=== PATIENT | female | born 1970 | race Caucasian/White ===

== ENCOUNTER 2018-06-08 12:24 | Observation (INO) | payer OTHER ==
[2018-06-08 13:13] LABS: Basophils % (A) 0 %; Eosinophils # (A) 0.1 k/uL (0-0.7); Eosinophils % (A) 1 %; HCT 39.2 % (34.0-46.0); HGB 12.9 gm/dL (11.4-16.0); Lymphocytes # (A) 2.9 k/uL (1.0-4.8); Lymphocytes % (A) 33 %; MCHC 32.9 g/dL (31.0-37.0); MCV 94.2 fL (80.0-100.0); Mean Platelet Volume 6.4; Monocytes # (A) 0.3 k/uL (0-1.0); Monocytes % (A) 3 %; Neutrophils # (A) 5.3 k/uL (1.3-7.7); Neutrophils % (A) 61 %; Platelet Count 313 k/uL (150-450); RBC 4.16 m/uL (3.80-5.40); RDW 12.8 % (11.5-15.5); WBC 8.8 k/uL (3.8-10.6)
[2018-06-08 13:19] LABS: Partial Thromboplastin Time 23.6 sec (22.0-30.0); Prothrombin Time 9.5 sec (9.0-12.0)
[2018-06-08 13:21] LABS: ALT 17 U/L (9-52); AST 16 U/L (14-36); Albumin 3.7 g/dL (3.5-5.0); Alkaline Phosphatase 93 U/L (38-126); Anion Gap 7 mmol/L; Blood Urea Nitrogen 7 mg/dL (7-17); Calcium 9.2 mg/dL (8.4-10.2); Carbon Dioxide 26 mmol/L (22-30); Chloride 106 mmol/L (98-107); Glucose 79 mg/dL (74-99); Lipase 46 U/L (23-300); Magnesium 2.1 mg/dL (1.6-2.3); Potassium 4.4 mmol/L (3.5-5.1); Sodium 139 mmol/L (137-145); Total Bilirubin 0.2 mg/dL (0.2-1.3); Total Protein 7.1 g/dL (6.3-8.2)
--- NOTE | 2018-06-08 13:25 | ED ---
General Adult HPI - General Chief complaint: Chest Pain Stated complaint: chest pain Time Seen by Provider: 06/08/18 12:43 Source: patient, RN notes reviewed, old records reviewed Mode of arrival: wheelchair Limitations: no limitations - History of Present Illness Initial comments: 47-year-old female presents for evaluation of chest pain. Pain is been present over the past one week. Intermittent in nature, substernal pain. She is a current smoker. She has a strong family history of CAD including both parents and her sister who had open-heart surgery in her 30s. Patient denies nausea or vomiting. Denies diaphoresis. Denies any radiating pain. She was previously evaluated for chest pain several years ago, she was instructed to receive heart catheterization but she did not receive this testing. - Related Data Home Medications Medication Instructions Recorded Confirmed ARIPiprazole [Abilify] 2 mg PO HS 06/08/18 06/08/18 Amitriptyline HCl [Elavil] 50 mg PO HS 06/08/18 06/08/18 Mirtazapine 30 mg PO HS 06/08/18 06/08/18 Allergies Allergy/AdvReac Type Severity Reaction Status Date / Time No Known Allergies Allergy Verified 06/08/18 13:55 Review of Systems ROS Statement: Those systems with pertinent positive or pertinent negative responses have been documented in the HPI. ROS Other: All systems not noted in ROS Statement are negative. Past Medical History Past Medical History: No Reported History History of Any Multi-Drug Resistant Organisms: None Reported Past Surgical History: Tubal Ligation Additional Past Surgical History / Comment(s): eye surgery Past Psychological History: Depression Smoking Status: Current every day smoker Past Alcohol Use History: None Reported Past Drug Use History: None Reported General Exam Limitations: no limitations General appearance: alert, in no apparent distress Head exam: Present: atraumatic, normocephalic Eye exam: Present: normal appearance, PERRL ENT exam: Present: normal exam Neck exam: Present: normal inspection. Absent: tenderness, meningismus Respiratory exam: Present: normal lung sounds bilaterally. Absent: respiratory distress, wheezes Cardiovascular Exam: Present: regular rate, normal rhythm GI/Abdominal exam: Present: soft. Absent: distended, tenderness, guarding Extremities exam: Present: normal inspection, normal capillary refill. Absent: pedal edema Back exam: Present: normal inspection, full ROM Neurological exam: Present: alert, oriented X3, CN II-XII intact. Absent: motor sensory deficit Psychiatric exam: Present: normal affect, normal mood Skin exam: Present: warm, dry, intact. Absent: cyanosis, diaphoretic Course Vital Signs 06/08/18 06/08/18 06/08/18 12:28 13:28 14:36 Temperature 97.8 F Pulse Rate 94 84 85 Respiratory 20 18 16 Rate Blood Pressure 133/85 148/84 125/74 O2 Sat by Pulse 99 98 97 Oximetry - Reevaluation(s) Reevaluation #1: 06/08/18 15:09 Patient remains chest pain-free while in the emergency department. EKG Findings - EKG Comments: EKG Findings:: EKG: Normal sinus rhythm, rightward axis, rate of 78, KS interval 158, QRS duration 94, QTC 426, no ST segment elevation or depression, Q waves in lead 3 with T-wave inversion Medical Decision Making - Medical Decision Making 47-year-old female presenting with 1 week history of intermittent chest pain. Patient has no known history of CAD, however she has significant risk factors including strong family history, and current tobacco use. Patient's workup in the emergency Department is negative, troponin negative, normal CBC, normal CMP. Patient will be placed in observation for serial cardiac enzymes, telemetry, and cardiology consultation. Case is discussed with admitting physician Dr. Michaels. - Lab Data Result diagrams: 06/08/18 12:53 06/08/18 12:53 Lab Results 06/08/18 06/08/18 06/08/18 Range/Units 12:53 12:53 12:53 WBC 8.8 (3.8-10.6) k/uL RBC 4.16 (3.80-5.40) m/uL Hgb 12.9 (11.4-16.0) gm/dL Hct 39.2 (34.0-46.0) % MCV 94.2 (80.0-100.0) fL MCH 31.0 (25.0-35.0) pg MCHC 32.9 (31.0-37.0) g/dL RDW 12.8 (11.5-15.5) % Plt Count 313 (150-450) k/uL Neutrophils % 61 % Lymphocytes % 33 % Monocytes % 3 % Eosinophils % 1 % Basophils % 0 % Neutrophils # 5.3 (1.3-7.7) k/uL Lymphocytes # 2.9 (1.0-4.8) k/uL Monocytes # 0.3 (0-1.0) k/uL Eosinophils # 0.1 (0-0.7) k/uL Basophils # 0.0 (0-0.2) k/uL PT (9.0-12.0) sec INR (<1.2) APTT (22.0-30.0) sec Sodium 139 (137-145) mmol/L Potassium 4.4 (3.5-5.1) mmol/L Chloride 106 (98-107) mmol/L Carbon Dioxide 26 (22-30) mmol/L Anion Gap 7 mmol/L BUN 7 (7-17) mg/dL Creatinine 0.57 (0.52-1.04) mg/dL Est GFR (CKD-EPI)AfAm >90 (>60 ml/min/1.73 sqM) Est GFR (CKD-EPI)NonAf >90 (>60 ml/min/1.73 sqM) Glucose 79 (74-99) mg/dL Calcium 9.2 (8.4-10.2) mg/dL Magnesium 2.1 (1.6-2.3) mg/dL Total Bilirubin 0.2 (0.2-1.3) mg/dL AST 16 (14-36) U/L ALT 17 (9-52) U/L Alkaline Phosphatase 93 (38-126) U/L Total Creatine Kinase 48 (30-135) U/L CK-MB (CK-2) 0.6 (0.0-2.4) ng/mL CK-MB (CK-2) Rel Index 1.3 Troponin I <0.012 (0.000-0.034) ng/mL NT-Pro-B Natriuret Pep pg/mL Total Protein 7.1 (6.3-8.2) g/dL Albumin 3.7 (3.5-5.0) g/dL Lipase 46 (23-300) U/L 06/08/18 06/08/18 Range/Units 12:53 12:53 WBC (3.8-10.6) k/uL RBC (3.80-5.40) m/uL Hgb (11.4-16.0) gm/dL Hct (34.0-46.0) % MCV (80.0-100.0) fL MCH (25.0-35.0) pg MCHC (31.0-37.0) g/dL RDW (11.5-15.5) % Plt Count (150-450) k/uL Neutrophils % % Lymphocytes % % Monocytes % % Eosinophils % % Basophils % % Neutrophils # (1.3-7.7) k/uL Lymphocytes # (1.0-4.8) k/uL Monocytes # (0-1.0) k/uL Eosinophils # (0-0.7) k/uL Basophils # (0-0.2) k/uL PT 9.5 (9.0-12.0) sec INR 1.0 (<1.2) APTT 23.6 (22.0-30.0) sec Sodium (137-145) mmol/L Potassium (3.5-5.1) mmol/L Chloride (98-107) mmol/L Carbon Dioxide (22-30) mmol/L Anion Gap mmol/L BUN (7-17) mg/dL Creatinine (0.52-1.04) mg/dL Est GFR (CKD-EPI)AfAm (>60 ml/min/1.73 sqM) Est GFR (CKD-EPI)NonAf (>60 ml/min/1.73 sqM) Glucose (74-99) mg/dL Calcium (8.4-10.2) mg/dL Magnesium (1.6-2.3) mg/dL Total Bilirubin (0.2-1.3) mg/dL AST (14-36) U/L ALT (9-52) U/L Alkaline Phosphatase (38-126) U/L Total Creatine Kinase (30-135) U/L CK-MB (CK-2) (0.0-2.4) ng/mL CK-MB (CK-2) Rel Index Troponin I (0.000-0.034) ng/mL NT-Pro-B Natriuret Pep 22 pg/mL Total Protein (6.3-8.2) g/dL Albumin (3.5-5.0) g/dL Lipase (23-300) U/L Disposition Clinical Impression: Chest pain Disposition: ADMITTED IP TO THIS HOSP Condition: Stable Instructions: Chest Pain (ED) Is patient prescribed a controlled substance at d/c from ED?: No Referrals: None,Stated [Primary Care Provider] - 1-2 days Decision to Admit Reason: Admit from EC Decision Date: 06/08/18 Decision Time: 15:12
[2018-06-08 13:30] LABS: Creatine Kinase 48 U/L (30-135)
--- NOTE | 2018-06-08 13:32 | XR ---
EXAMINATION TYPE: XR chest 2V DATE OF EXAM: 06/08/2018 COMPARISON: NONE HISTORY: Chest pain for one week TECHNIQUE: Frontal and lateral views of the chest are obtained. FINDINGS: There is no focal air space opacity, pleural effusion, or pneumothorax seen. The cardiac silhouette size is within normal limits. Minimal scattered subsegmental atelectasis most prominent in the lung bases. The osseous structures are intact. IMPRESSION: No acute cardiopulmonary process.
[2018-06-08 13:44] LABS: Creatine Kinase MB 0.6 ng/mL (0.0-2.4); Troponin I <0.012 ng/mL (0.000-0.034)
[2018-06-08] MEDS ORDERED: ASPIRIN 325 MG TAB PO STA (14:07)
[2018-06-08] MEDS ORDERED: NALOXONE 0.4 MG/ML 1 ML VIAL IV PRN (15:07)
[2018-06-08] MEDS ORDERED: ACETAMINOPHEN TAB 325 MG TAB PO PRN (15:07)
[2018-06-08] MEDS ORDERED: MORPHINE SULFATE 4 MG/ML SYRINGE IV PRN (15:07)
--- NOTE | 2018-06-08 16:41 | P.HPIM ---
History of Present Illness H&P Date: 06/08/18 Chief Complaint: chest pain Patient is a 47-year-old female with a history of dyslipidemia not currently on medications, bipolar disorder, and tobacco abuse who presented to the hospital with complaints of chest pain. In the ER she underwent an extensive evaluation. Her initial vital signs were within normal limits. Initial troponin was negative. Initial EKG did not appear to show any acute ischemia. She was given a dose of aspirin and arrangements were made for observation. Patient seen and examined at bedside in the emergency department. She states that she started having chest pain approximately one week ago after having increased stress. She states that the pain waxes and wanes. It occurs approximately twice per hour. In his left sided behind her breast and does not radiate. She had one episode where it was associated with numbness in her arm. She's had several episodes where she felt lightheaded and dizzy. She denies any shortness of breath, nausea, vomiting, palpitations, diaphoresis, and fainting. She is unsure what makes it better or worse. She states it is not associated with eating, or activity. She states that last night the chest pain awoke her from sleep. She was staying with her sister for the last week and when her chest pain started. She states that she has a strong family cardiac history. Her mother at age 52 and had a history of a myocardial infarction, abdominal aortic aneurysm, and stroke. Her father had a history of a myocardial infarction and at age 69 of a massive RI. She states that her sister had 6 vessel bypass at age 35. She ultimately of suicide attempt at age 42. She denies any recent cough, cold, fever, flu, nausea, vomiting, diarrhea, constipation, dysuria, unusual numbness or weakness. Review of Systems Pertinent positives and negatives as discussed in HPI, a complete review of systems was performed and all other systems are negative. 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 Mother Additional Family Medical History / Comment(s): at age 52. History of myocardial infarction, abdominal aortic aneurysm, and stroke Sister(s) Additional Family Medical History / Comment(s): Date 6 vessel bypass at age 35, at age 42 suicide Medications and Allergies Home Medications Medication Instructions Recorded Confirmed Type ARIPiprazole [Abilify] 2 mg PO HS 06/08/18 06/08/18 History Amitriptyline HCl [Elavil] 50 mg PO HS 06/08/18 06/08/18 History Mirtazapine 30 mg PO HS 06/08/18 06/08/18 History Allergies Allergy/AdvReac Type Severity Reaction Status Date / Time No Known Allergies Allergy Verified 06/08/18 13:55 Physical Exam Osteopathic Statement: *. No significant issues noted on an osteopathic structural exam other than those noted in the History and Physical/Consult. Vitals: Vital Signs Temp Pulse Resp BP Pulse Ox 06/08/18 15:43 98.4 F 66 18 120/67 98 06/08/18 14:36 85 16 125/74 97 06/08/18 13:28 84 18 148/84 98 06/08/18 12:28 97.8 F 94 20 133/85 99 Intake and Output 06/08/18 06/08/18 06/08/18 06:59 14:59 22:59 Other: Weight 63.503 kg General: non toxic, no distress, appears at stated age, normal weight Derm: no unusual rashes/lesions no unusual ecchymoses, warm, dry Head: atraumatic, normocephalic, symmetric Eyes: EOMI, no lid lag, anicteric sclera, pupils equal round reactive to light ENT: Nose and ears atraumatic, no thrush, no pharyngeal erythema Neck: No thyromegaly, no cervical lymphadenopathy, trachea midline, supple Mouth: no lip lesion, mucus membranes moist Cardiovascular: S1S2 reg, no murmur, positive posterior tibial pulse bilateral, no edema, capillary refill less than 2 seconds, chest pain nonreproducible Lungs: CTA bilateral, no rhonchi, no rales , no accessory muscle use Abdominal: soft, nontender to palpation, no guarding, no appreciable organomegaly, normal bowel sounds Ext: no gross muscle atrophy, muscle strength 5 out of 5 in all 4 extremities grossly, no contractures, Neuro: CN II-XI grossly intact, light touch intact all 4 extremities, finger to nose within normal limits, Psych: Alert, oriented, appropriate affect Results CBC & Chem 7: 06/08/18 12:53 06/08/18 12:53 Comments: EKG is reviewed by myself revealed normal sinus rhythm at a rate of 98, normal axis, normal intervals, no significant ST-T wave changes. Chest x-ray: report reviewed Thrombosis Risk Factor Assmnt - DVT/VTE Prophylaxis DVT/VTE Prophylaxis: Low risk, early ambulation encouraged Assessment and Plan Assessment: Chest pain -Aspirin, telemetry, serial troponins -Cardiology consult, nothing by mouth after midnight -Lipid profile in a.m. Tobacco abuse -Smoking cessation -Nicotine replacement as needed History of dyslipidemia -Not currently on treatment -Check lipid profile Bipolar disorder -Continue home medications The patient is placed in observation with an anticipated less than 2 per night stay for evaluation of chest pain. Surrogate decision-maker: CODE STATUS: Full code DVT prophylaxis: SCDs, early ambulation Discussed with: Patient Anticipated discharge date: [address]: Home A total of 45 minutes was spent on the care of this complex patient more than 50 % of the time was spent in counseling and care coordination.
[2018-06-08] MEDS ORDERED: NITROGLYCERIN SL TABS 0.4 MG TAB SUBLINGUAL PRN (16:42)
[2018-06-08] MEDS ORDERED: ONDANSETRON 4 MG/2 ML VIAL IVP PRN (16:43)
[2018-06-08] MEDS ORDERED: HYDROcodone/APAP 5-325MG 1 EACH TAB PO PRN (16:43)
[2018-06-08] MEDS ORDERED: CALCIUM CARBONATE 500 MG CHEWABLE PO PRN (16:43)
[2018-06-08] MEDS ORDERED: MELATONIN 5 MG TABLET PO PRN (16:43)
[2018-06-08 17:18] VITALS: BMI 24.0
[2018-06-08] MEDS: NICOTINE 21MG/24HR PATCH TRANSDERM SCH (18:21)
[2018-06-08 18:57] LABS: Creatine Kinase 40 U/L (30-135)
[2018-06-08 19:10] LABS: Creatine Kinase MB 0.5 ng/mL (0.0-2.4); Troponin I <0.012 ng/mL (0.000-0.034)
[2018-06-08] MEDS: AMITRIPTYLINE HCL 50 MG TAB PO SCH (20:34)
[2018-06-08] MEDS: ARIPiprazole 2 MG TAB PO SCH (20:35)
[2018-06-08] MEDS: MIRTAZAPINE 15 MG TAB PO SCH (20:35)
[2018-06-09 01:34] LABS: Cholesterol 164 mg/dL (<200); HDL Cholesterol 31 mg/dL (40-60); LDL Cholesterol,Calculated 91 mg/dL (0-99); Triglycerides 211 mg/dL (<150)
[2018-06-09 01:38] LABS: Creatine Kinase 39 U/L (30-135)
[2018-06-09 01:51] LABS: Creatine Kinase MB 0.4 ng/mL (0.0-2.4); Troponin I <0.012 ng/mL (0.000-0.034)
[2018-06-09] MEDS: NICOTINE 21MG/24HR PATCH TRANSDERM SCH (10:15)
[2018-06-09] MEDS: ASPIRIN 81 MG PO SCH (10:15)
--- NOTE | 2018-06-09 12:11 | P.CRDCN ---
History of Present Illness Consult date: 06/09/18 Requesting physician: Marlene Michaels Reason for Consult (text): chest pain Chief complaint: intermittent chest pain x2 weeks History of present illness: This is a pleasant 47-year-old female patient with history of dyslipidemia, bipolar and tobacco abuse. Also has a family history of premature CAD in her mother who age 52, and a sister who had CABG at age 35. Presented to the emergency department with complaints of intermittent sharp stabbing left-sided chest discomfort ongoing for the last 2 weeks. Not becoming more severe or more frequent. Lasting less than a minute at a time. He usually lasting only seconds. Not related to exertion. No associated symptoms however she does have complaints of occasional episodes of lightheadedness. She's had no shortness of breath, nausea, vomiting, palpitations, diaphoresis or syncope. EKG on admission showed sinus rhythm with no evidence of acute ischemia. Chest x-ray showed no acute cardiopulmonary process. CBC, renal function and electrolytes are normal. Troponins negative 3. NT proBNP normal at 22. Lipid profile showed triglycerides 211, total cholesterol 164, LDL 91 and an HDL of 31. Her medications include Elavil, Abilify and Mirtazapine. Past Medical History Past Medical History: Hyperlipidemia History of Any Multi-Drug Resistant Organisms: None Reported Past Surgical History: Tubal Ligation Additional Past Surgical History / Comment(s): eye surgery Past Anesthesia/Blood Transfusion Reactions: No Reported Reaction Additional Past Anesthesia/Blood Transfusion Reaction / Comment(s): Has trouble waking up from anesthesia Past Psychological History: Bipolar, Depression Smoking Status: Current every day smoker Past Alcohol Use History: None Reported Past Drug Use History: None Reported - Past Family History Father Additional Family Medical History / Comment(s): History of myocardial infarction and at age 69 of a massive myocardial infarction. Mother Additional Family Medical History / Comment(s): at age 52. History of myocardial infarction, abdominal aortic aneurysm, and stroke Sister(s) Additional Family Medical History / Comment(s): Date 6 vessel bypass at age 35, at age 42 suicide Medications and Allergies Home Medications Medication Instructions Recorded Confirmed Type ARIPiprazole [Abilify] 2 mg PO HS 06/08/18 06/08/18 History Amitriptyline HCl [Elavil] 50 mg PO HS 06/08/18 06/08/18 History Mirtazapine 30 mg PO HS 06/08/18 06/08/18 History Allergies Allergy/AdvReac Type Severity Reaction Status Date / Time No Known Allergies Allergy Verified 06/08/18 13:55 Physical Exam Vitals: Vital Signs Temp Pulse Pulse Resp BP BP Pulse Ox 06/09/18 08:05 98.4 F 79 18 99/64 95 06/09/18 04:00 98.2 F 74 18 101/57 99 06/09/18 00:00 97.3 F L 71 18 109/67 99 06/08/18 20:00 97.7 F 73 18 105/72 97 06/08/18 16:45 97.7 F 87 18 117/79 100 06/08/18 15:43 98.4 F 66 18 120/67 98 06/08/18 14:36 85 16 125/74 97 06/08/18 13:28 84 18 148/84 98 06/08/18 12:28 97.8 F 94 20 133/85 99 Intake and Output 06/08/18 06/09/18 06/09/18 22:59 06:59 14:59 Other: Voiding Method Toilet Toilet # Voids 0 1 1 Weight 63.5 kg 63.5 kg PHYSICAL EXAMINATION: HEENT: Head is atraumatic, normocephalic. Pupils equal, round. Neck is supple. There is no elevated jugular venous pressure. HEART EXAMINATION: Heart sounds regular, S1 and S2 normal. No murmur or gallop heard. CHEST EXAMINATION: Lungs are clear to auscultation and precussion. No chest wall tenderness is noted on palpation or with deep breathing. ABDOMEN: Soft, nontender. Bowel sounds are heard. No organomegaly noted. EXTREMITIES: 2+ peripheral pulses with no evidence of peripheral edema and no calf tenderness noted. NEUROLOGIC patient is awake, alert and oriented x3. . Results 06/08/18 12:53 06/08/18 12:53 Cardiac Enzymes 06/08/18 06/08/18 06/08/18 Range/Units 12:53 12:53 18:16 AST 16 (14-36) U/L CK-MB (CK-2) 0.6 0.5 (0.0-2.4) ng/mL Troponin I <0.012 <0.012 (0.000-0.034) ng/mL 06/09/18 Range/Units 00:56 AST (14-36) U/L CK-MB (CK-2) 0.4 (0.0-2.4) ng/mL Troponin I <0.012 (0.000-0.034) ng/mL Coagulation 06/08/18 Range/Units 12:53 PT 9.5 (9.0-12.0) sec APTT 23.6 (22.0-30.0) sec Lipids 06/09/18 Range/Units 00:56 Triglycerides 211 H (<150) mg/dL Cholesterol 164 (<200) mg/dL HDL Cholesterol 31 L (40-60) mg/dL CBC 06/08/18 Range/Units 12:53 WBC 8.8 (3.8-10.6) k/uL RBC 4.16 (3.80-5.40) m/uL Hgb 12.9 (11.4-16.0) gm/dL Hct 39.2 (34.0-46.0) % Plt Count 313 (150-450) k/uL Comprehensive Metabolic Panel 06/08/18 Range/Units 12:53 Sodium 139 (137-145) mmol/L Potassium 4.4 (3.5-5.1) mmol/L Chloride 106 (98-107) mmol/L Carbon Dioxide 26 (22-30) mmol/L BUN 7 (7-17) mg/dL Creatinine 0.57 (0.52-1.04) mg/dL Glucose 79 (74-99) mg/dL Calcium 9.2 (8.4-10.2) mg/dL AST 16 (14-36) U/L ALT 17 (9-52) U/L Alkaline Phosphatase 93 (38-126) U/L Total Protein 7.1 (6.3-8.2) g/dL Albumin 3.7 (3.5-5.0) g/dL Current Medications Generic Name Dose Route Start Last Admin Trade Name Freq PRN Reason Stop Dose Admin Acetaminophen 650 mg 06/08/18 15:07 Tylenol Tab PO Q6HR PRN Mild Pain or Fever > 100.5 Hydrocodone Bitart/Acetaminophen 1 each 06/08/18 16:43 [place] 5-325 PO Q6HR PRN Pain Amitriptyline HCl 50 mg 06/08/18 21:00 06/08/18 20:34 Elavil PO 50 mg HS NARINDER Administration Aripiprazole 2 mg 06/08/18 21:00 06/08/18 20:35 Abilify PO 2 mg HS NARINDER Administration Aspirin 81 mg 06/09/18 09:00 06/09/18 10:15 Aspirin PO 81 mg DAILY NARINDER Administration Calcium Carbonate/Glycine 500 mg 06/08/18 16:43 Tums PO TID PRN Heartburn Melatonin 5 mg 06/08/18 16:43 Melatonin PO HS PRN Insomnia Mirtazapine 30 mg 06/08/18 21:00 06/08/18 20:35 Remeron PO 30 mg HS NARINDER Administration Morphine Sulfate 4 mg 06/08/18 15:07 Morphine Sulfate (Inj) IV Q4HR PRN Severe Pain Naloxone HCl 0.2 mg 06/08/18 15:07 Narcan IV Q2M PRN Opioid Reversal Nicotine 1 patch 06/08/18 17:45 06/09/18 10:15 Habitrol 21mg/24hr Patch TRANSDERM 1 patch DAILY NARINDER Administration Nitroglycerin 0.4 mg 06/08/18 16:42 Nitrostat SUBLINGUAL Q5M PRN Chest Pain Ondansetron HCl 4 mg 06/08/18 16:43 Zofran IVP Q6H PRN Nausea Intake and Output 06/08/18 06/09/18 06/09/18 22:59 06:59 14:59 Other: Voiding Method Toilet Toilet # Voids 0 1 1 Weight 63.5 kg 63.5 kg 06/08/18 12:53 06/08/18 12:53 Assessment and Plan Assessment: #1 atypical chest pain #2 significant family history of premature CAD #3 dyslipidemia #4 nicotine dependence #5 bipolar disorder Plan: From cardiology's perspective, we'll obtain a 2-D echo with Doppler. We will also schedule the patient for a regular stress echo to be done in the morning. Further recommendations to follow. 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 Patient was seen and examined.
--- NOTE | 2018-06-09 13:55 | P.PN ---
Subjective Progress Note Date: 06/09/18 (delayed charting patient seen at noon) Principal diagnosis: chest pain Patient is a 47-year-old female with a history of dyslipidemia not currently on medications, bipolar disorder, and tobacco abuse who presented to the hospital with complaints of chest pain. In the ER she underwent an extensive evaluation. Her initial vital signs were within normal limits. Initial troponin was negative. Initial EKG did not appear to show any acute ischemia. She was given a dose of aspirin and arrangements were made for observation. Cardiology was consulted. Her telemetry and troponins remained negative. Plans are for stress test in a.m. on 06/10. Patient seen and examined at bedside. No additional chest pain, no shortness of breath, no nausea, no vomiting. We discussed that her triglycerides are slightly high which is likely related to her Abilify will need to start medications for them. Objective - Vital Signs Vital signs: Vital Signs Temp 98.3 F 06/09/18 11:55 Pulse 84 06/09/18 11:55 Resp 18 06/09/18 11:55 BP 104/61 06/09/18 11:55 Pulse Ox 97 06/09/18 11:55 Intake & Output 06/08/18 06/09/18 06/09/18 18:59 06:59 18:59 Weight 63.5 kg 63.5 kg Other: Voiding Method Toilet # Voids 0 1 1 - Exam General: non toxic, no distress, appears at stated age Derm: warm, dry Head: atraumatic, normocephalic, symmetric Eyes: EOMI, no lid lag, anicteric sclera Mouth: no lip lesion, mucus membranes moist Cardiovascular: S1S2 reg, no murmur, positive posterior tibial pulse bilateral, Lungs: CTA bilateral, no rhonchi, no rales , no accessory muscle use Abdominal: soft, nontender to palpation, no guarding, no appreciable organomegaly Ext: no gross muscle atrophy, no edema, no contractures Neuro: CN II-XI grossly intact, no focal neuro deficits Psych: Alert, oriented, appropriate affect - Labs CBC & Chem 7: 06/08/18 12:53 06/08/18 12:53 Labs: Abnormal Lab Results - Last 24 Hours (Table) 06/09/18 Range/Units 00:56 Triglycerides 211 H (<150) mg/dL HDL Cholesterol 31 L (40-60) mg/dL Assessment and Plan Assessment: Chest pain -Aspirin, telemetry, serial troponins negative -Cardiology recs appreciated planning for stress test in a.m. Dyslipidemia -Will need statin on discharge -Determine dose once stress test complete - due to abilify - will need PCP on discharge. Tobacco abuse -Smoking cessation -Nicotine replacement as needed Bipolar disorder -Continue home medications DVT prophylaxis: SCDs, early ambulation Discussed with: Patient Anticipated discharge date: [address]: Home A total of 25 minutes was spent on the care of this complex patient more than 50 % of the time was spent in counseling and care coordination.
[2018-06-09] MEDS: MIRTAZAPINE 15 MG TAB PO SCH (20:23)
[2018-06-09] MEDS: AMITRIPTYLINE HCL 50 MG TAB PO SCH (20:23)
[2018-06-09] MEDS: ARIPiprazole 2 MG TAB PO SCH (20:23)
[2018-06-10 07:43] VITALS: RESP 18; TEMP 97.9
--- NOTE | 2018-06-10 11:24 | ECHOF ---
Referral Reason:chest pain MEASUREMENTS -------- HEIGHT: 137.2 cm WEIGHT: 63.0 kg BP: 115/67 RVIDd: 3.5 cm (< 3.3) IVSd: 0.9 cm (0.6 - 1.1) LVIDd: 4.2 cm (3.9 - 5.3) LVPWd: 1.1 cm (0.6 - 1.1) IVSs: 1.4 cm LVIDs: 2.5 cm LVPWs: 1.4 cm LA Diam: 3.5 cm (2.7 - 3.8) LAESV Index (A-L): 21.89 ml/m Ao Diam: 2.8 cm (2.0 - 3.7) AV Cusp: 1.6 cm (1.5 - 2.6) LA Diam: 4.1 cm (2.7 - 3.8) MV EXCURSION: 16.312 mm (> 18.000) MV EF SLOPE: 64 mm/s (70 - 150) EPSS: 0.2 cm MV E Mor: 0.75 m/s MV DecT: 220 ms MV A Mor: 1.00 m/s MV E/A Ratio: 0.75 RAP: 5.00 mmHg RVSP: 21.98 mmHg FINDINGS -------- Sinus rhythm. This was a technically adequate study. LV size, wall thickness and systolic function are normal, with an EF greater than 55%. The left phuong tricular size is normal. The right ventricle is mildly enlarged. The left atrial size is normal. The right atrial size is normal. The aortic valve is trileaflet, and appears structurally normal. No aortic stenosis or regurgitation. There is trace mitral regurgitation. Mild tricuspid regurgitation present. There is no evidence of pulmonary hypertension. The right v entricular systolic pressure, as measured by Doppler, is 21.98mmHg. There is no pulmonic regurgitation present. The aortic root size is normal. There is no pericardial effusion. CONCLUSIONS -------- 1. LV size, wall thickness and systolic function are normal, with an EF greater than 55%. 2. The left ventricular size is normal. 3. The right ventricle is mildly enlarged. 4. The left atrial size is normal. 5. The right atrial size is normal. 6. The aortic valve is trileaflet, and appears structurally normal. No aortic stenosis or regurgitati on. 7. There is trace mitral regurgitation. 8. Mild tricuspid regurgitation present. 9. There is no evidence of pulmonary hypertension. 10. The right ventricular systolic pressure, as measured by Doppler, is 21.98mmHg. 11. There is no pulmonic regurgitation present. 12. The aortic root size is normal. 13. There is no pericardial effusion. ADULT SERVICES LIBRARIAN: Ally Faustin RDCS
[2018-06-10] MEDS: ASPIRIN 81 MG PO SCH (11:43)
[2018-06-10] MEDS: NICOTINE 21MG/24HR PATCH TRANSDERM SCH (11:43)
--- NOTE | 2018-06-10 12:05 | ECHOS ---
STRESS ECHOCARDIOGRAM DATE OF SERVICE: 06/10/2018 INDICATIONS: Chest pain. MEDICATIONS: BASELINE HEART RATE: 83 BASELINE BLOOD PRESSURE: 123/90 MAXIMUM HEART RATE: 154 MAXIMUM BLOOD PRESSURE: 212/78 85% MPHR: 149 100% MPHR: 175 METS: 8.5 MAXIMUM STAGE REACHED: II TOTAL EXERCISE TIME: 7 minutes CLINICAL INFORMATION: STRESS DATA: Pretesting physical examination showed a heart rate of 83, pressure is 123/90 mmHg. Baseline EKG showed sinus mechanism. The patient exercised on the treadmill according to Dejuan protocol for a total of 7 minutes and achieved 8.5 METs. Max heart rate was 154, which is about 88% of maximum predicted heart rate. Maximum blood pressure was 212/78 mmHg. Clinically the patient did not have any symptoms of chest pain or discomfort during the testing or on recovery. The EKG did not show any significant ST or T-wave abnormalities concerning for ischemia. ECHOCARDIOGRAM IMAGES: On echocardiogram images in parasternal long axis view, parasternal short axis view, apical 4 chamber and apical 2 chamber view were obtained as the baseline images, at the peak of the heart rate, as well as on recovery. The echocardiogram images showed good augmentation in the left ventricular systolic function without any evidence of wall motion abnormalities concerning for ischemia. CONCLUSION: 1. Good exercise tolerance. 2. Normal EKG in response to exercise. 3. Normal echocardiogram in response to exercise. MMODL / IJN: [id number] /
[2018-06-10 12:07] VITALS: BP 131/79; PULSE 98
--- NOTE | 2018-06-10 13:29 | P.DS ---
Providers Date of admission: 06/08/18 15:07 Expected date of discharge: 06/10/18 Attending physician: Marlene Michaels DO Consults: 06/08/18 15:08 Consult Physician Routine Consulting Provider: Zenon Meehan Consult Reason/Comments: Chest Pain Do you want consulting provider notified?: Yes Primary care physician: Stated None Hospital Course: Discharge Diagnosis: Noncardiac chest pain Dyslipidemia Tobacco abuse Bipolar disorder Hospital Course: Patient is a 47-year-old female with a history of dyslipidemia not currently on medications, bipolar disorder, and tobacco abuse who presented to the hospital with complaints of chest pain. In the ER she underwent an extensive evaluation. Her initial vital signs were within normal limits. Initial troponin was negative. Initial EKG did not appear to show any acute ischemia. She was given a dose of aspirin and arrangements were made for observation. Cardiology was consulted. Her telemetry and troponins remained negative. She underwent stress testing on the morning of 06/10. Stress echo was unremarkable. Traditional ago was also unremarkable. She was determined stable for discharge home. She will follow up with Dr. Erlinda Swan of [facility] as her PCP. Her cholesterol profile did show elevated triglycerides. She was started on Lipitor she currently takes Abilify and it was felt that she likely would not be able to affect a significant change with dietary modifications alone. I've informed her that she should be getting periodic testing of her cholesterol level, hemoglobin A1c, and chemistry profiles while on Abilify and a statin. Patient seen and examined at bedside.No additional chest pain, no shortness of breath, wants to be discharged home. Vital signs reviewed and stable. General: non toxic, no distress, appears at stated age Derm: warm, dry Head: atraumatic, normocephalic, symmetric Eyes: EOMI, no lid lag, anicteric sclera Mouth: no lip lesion, mucus membranes moist Cardiovascular: S1S2 reg, no murmur, positive posterior tibial pulse bilateral, Lungs: CTA bilateral, no rhonchi, no rales , no accessory muscle use Abdominal: soft, nontender to palpation, no guarding, no appreciable organomegaly Ext: no gross muscle atrophy, no edema, no contractures Neuro: CN II-XI grossly intact, no focal neuro deficits Psych: Alert, oriented, appropriate affect A total of 25 minutes of time were spent preparing this complex discharge summary . Pertinent Studies: Stress echo- No signs of exercise induced ischemia, good exercise tolernance Echo- EF >55% Patient Condition at Discharge: Stable Plan - Discharge Summary New Discharge Prescriptions: New Aspirin 81 mg PO DAILY chew Atorvastatin [Lipitor] 20 mg PO HS #30 tablet Continue Mirtazapine 30 mg PO HS Amitriptyline HCl [Elavil] 50 mg PO HS ARIPiprazole [Abilify] 2 mg PO HS Discharge Medication List ARIPiprazole [Abilify] 2 mg PO HS 06/08/18 [History] Amitriptyline HCl [Elavil] 50 mg PO HS 06/08/18 [History] Mirtazapine 30 mg PO HS 06/08/18 [History] Aspirin 81 mg PO DAILY chew 06/10/18 [Rx] Atorvastatin [Lipitor] 20 mg PO HS #30 tablet 06/10/18 [Rx] Follow up Appointment(s)/Referral(s): Delmar Huntley MD [REFERRING] - 1 Week None,Stated [Primary Care Provider] - 1-2 days Patient Instructions/Handouts: Chest Pain (ED)
--- NOTE | 2018-06-10 14:36 | P.PN ---
Subjective Progress Note Date: 06/10/18 This is a pleasant 47-year-old female patient with history of dyslipidemia, bipolar and tobacco abuse. Also has a family history of premature CAD in her mother who age 52, and a sister who had CABG at age 35. Presented to the emergency department with complaints of intermittent sharp stabbing left-sided chest discomfort ongoing for the last 2 weeks. Not becoming more severe or more frequent. Lasting less than a minute at a time. He usually lasting only seconds. Not related to exertion. No associated symptoms however she does have complaints of occasional episodes of lightheadedness. She's had no shortness of breath, nausea, vomiting, palpitations, diaphoresis or syncope. EKG on admission showed sinus rhythm with no evidence of acute ischemia. Chest x-ray showed no acute cardiopulmonary process. EF on echo greater than 55%. Stress echo negative for any reversible ischemia. No further chest discomfort. Objective - Vital Signs Vital signs: Vital Signs Temp 97.9 F 06/10/18 07:43 Pulse 98 06/10/18 12:06 Resp 18 06/10/18 12:06 BP 131/79 06/10/18 12:06 Pulse Ox 98 06/10/18 12:06 Intake & Output 06/09/18 06/10/18 06/10/18 18:59 06:59 18:59 Intake Total 620 240 0 Balance 620 240 0 Weight 63.5 kg Intake: Oral 620 240 0 Other: Voiding Method Toilet Toilet # Voids 1 2 1 - Exam PHYSICAL EXAMINATION: GENERAL: 47-year-old female in no acute distress at the time of my examination HEENT: Head is atraumatic, normocephalic. Pupils equal, round. Sclera anicteric. Conjunctiva are clear. Mucous membranes of the mouth are moist. Neck is supple. There is no elevated jugular venous pressure.] bruit is heard. HEART EXAMINATION: Heart S1, S2 normal. No murmur or gallop heard. CHEST EXAMINATION: Lungs are clear to auscultation and precussion. No chest wall tenderness is noted on palpation or with deep breathing. ABDOMEN: Soft, nontender. Bowel sounds are heard. No organomegaly noted. EXTREMITIES: 2+ peripheral pulses with no evidence of peripheral edema and no calf tenderness noted. NEUROLOGIC patient is awake, alert and oriented ?-3. . - Labs CBC & Chem 7: 06/08/18 12:53 06/08/18 12:53 Assessment and Plan Plan: Assessment and plan #1 atypical chest pain, stress echocardiographic study negative for any reversible ischemia #2 family history of premature coronary artery disease #3 hyperlipidemia #4 nicotine dependence #5 bipolar disorder Plan Echo showed normal LV function, stress echocardiographic study negative for any reversible ischemia. From cardiology's perspective, patient may be able to be discharged home by primary. DNP note has been reviewed, I agree with a documented findings and plan of care. Patient was seen and examined.
== END 2018-06-10 14:01 | disposition home or self-care (01) ==
LOC: EC 12:24 → 3SCARD 15:07
PROVIDERS: ADMIT Internal Medicine; ATTEND Internal Medicine
DX: R07.89 Other chest pain (principal); R07.2 Precordial pain; E78.5 Hyperlipidemia, unspecified; F17.200 Nicotine dependence, unspecified, uncomplicated; F31.9 Bipolar disorder, unspecified; R20.0 Anesthesia of skin; R42 Dizziness and giddiness; E78.1 Pure hyperglyceridemia; Z79.899 Other long term (current) drug therapy; Z82.49 Family history of ischemic heart disease and other diseases of the circulatory system; Z82.3 Family history of stroke; Z81.8 Family history of other mental and behavioral disorders
CPT/HCPCS: 99285; 36415; 93005; 93306; 93351; 83880; 80061; 80053; 82550 ×2; 82553 ×2; 83690; 83735; 84484 ×2; 85025; 85610; 85730; 71046; G0378 ×3; S4990 ×3

== ENCOUNTER 2018-08-24 18:28 | Emergency (ER) | payer OTHER ==
--- NOTE | 2018-08-24 21:11 | XR ---
EXAMINATION TYPE: XR lumbosacral spine min 4V DATE OF EXAM: 08/24/2018 COMPARISON: NONE HISTORY: 47-year-old female low back pain TECHNIQUE: 5 views FINDINGS: Slight levoconvex curvature. 5 lumbar type vertebral bodies. There appears to be tubal ligation clip displaced into the left mid abdomen. No pars interarticularis defect. Mild facet arthropathy lower gonzalez mbar spine. Vertebral body heights are preserved and alignment is maintained. Minimal disc space narr owing L4-L5 and L5-S1. IMPRESSION: 1. The right sided tubal ligation clip is displaced into the left mid abdomen. 2. Mild facet arthropathy lower lumbar spine and minimal disc height loss at L4-L5 and L5-S1. 3. Slight levoconvex curvature could be from positioning or could be secondary to pain/muscle spasm.
== END 2018-08-24 22:20 | disposition home or self-care (01) ==
LOC: EC 18:28
DX: S39.012A Strain of muscle, fascia and tendon of lower back, initial encounter (principal); F17.200 Nicotine dependence, unspecified, uncomplicated; X58.XXXA Exposure to other specified factors, initial encounter
CPT/HCPCS: 72110; 96372; 99283

== ENCOUNTER → 2018-08-24 | Emergency (ER) | payer OTHER ==
[2018-08-25 00:26] LABS: Appearance,Urine Clear (Clear); Bilirubin,Urine Negative (Negative); Blood,Urine Negative (Negative); Color,Urine Yellow; Glucose,Urine (UA) Negative (Negative); Ketones,Urine Negative (Negative); Leukocyte Esterase,Urine Negative (Negative); Mucus,Urine Rare /hpf; Nitrite,Urine Negative (Negative); PH, Urine 6.5 (5.0-8.0); Protein,Urine Negative (Negative); RBC,Urine 1 /hpf (0-5); Specific Gravity,Urine 1.009 (1.001-1.035); Squamous Epithelial Cell,Urine 2 /hpf (0-4); Urobilinogen,Urine <2.0 mg/dL (<2.0); WBC,Urine 1 /hpf (0-5)
== END ==
LOC: CANPREER → EC 19:20
DX: Z53.9 Procedure and treatment not carried out, unspecified reason (principal)
CPT/HCPCS: 72110; 81003

== ENCOUNTER 2021-04-29 12:53 | Emergency (ER) | payer OTHER ==
[2021-04-29] MEDS ORDERED: SODIUM CHLORIDE 0.9% 1,000 ML IV STA (13:26)
[2021-04-29] MEDS ORDERED: ONDANSETRON 4 MG/2 ML VIAL IVP STA (13:26)
[2021-04-29] MEDS ORDERED: MORPHINE SULFATE 4 MG/ML SYRINGE IV STA (13:26)
[2021-04-29 13:53] LABS: Basophils % (A) 0 %; Eosinophils # (A) 0.1 k/uL (0-0.7); Eosinophils % (A) 1 %; HCT 37.2 % (34.0-46.0); HGB 14.1 gm/dL (11.4-16.0); Lymphocytes # (A) 2.4 k/uL (1.0-4.8); Lymphocytes % (A) 30 %; MCH 38.1 pg (25.0-35.0); MCV 100.2 fL (80.0-100.0); Mean Platelet Volume 7.4; Monocytes # (A) 0.3 k/uL (0-1.0); Monocytes % (A) 3 %; Neutrophils % (A) 63 %; Platelet Count 271 k/uL (150-450); RBC 3.71 m/uL (3.80-5.40); RDW 12.7 % (11.5-15.5); WBC 7.9 k/uL (3.8-10.6)
[2021-04-29 13:56] LABS: Appearance,Urine Clear (Clear); Bilirubin,Urine Negative (Negative); Blood,Urine Negative (Negative); Color,Urine Yellow; Glucose,Urine (UA) Negative (Negative); Ketones,Urine Negative (Negative); Leukocyte Esterase,Urine Small (Negative); Mucus,Urine Rare /hpf; Nitrite,Urine Negative (Negative); PH, Urine 5.5 (5.0-8.0); Protein,Urine Negative (Negative); RBC,Urine <1 /hpf (0-5); Specific Gravity,Urine 1.015 (1.001-1.035); Squamous Epithelial Cell,Urine 4 /hpf (0-4); Urobilinogen,Urine <2.0 mg/dL (<2.0); WBC,Urine 2 /hpf (0-5)
[2021-04-29 14:04] LABS: ALT 14 U/L (4-34); AST 31 U/L (14-36); African American GFR (CKD) >90 (>60 ml/min/1.73 sqM); Albumin 4.4 g/dL (3.5-5.0); Alkaline Phosphatase 95 U/L (38-126); Amylase 53 U/L (30-110); Anion Gap 10 mmol/L; Blood Urea Nitrogen 11 mg/dL (7-17); Calcium 9.5 mg/dL (8.4-10.2); Carbon Dioxide 27 mmol/L (22-30); Chloride 102 mmol/L (98-107); Glucose 109 mg/dL (74-99); Lipase 137 U/L (23-300); Non-African American GFR(CKD) >90 (>60 ml/min/1.73 sqM); Potassium 4.4 mmol/L (3.5-5.1); Sodium 139 mmol/L (137-145); Total Bilirubin 0.4 mg/dL (0.2-1.3); Total Protein 7.8 g/dL (6.3-8.2)
--- NOTE | 2021-04-29 14:40 | CT ---
EXAMINATION TYPE: CT abdomen pelvis w con DATE OF EXAM: 04/29/2021 HISTORY: RLQ pain with diarrhea. CT DLP: 730.3mGycm Automated Exposure Control for Dose Reduction was Utilized. CONTRAST: CT scan of the abdomen and pelvis is performed without oral but with IV Contrast, patient injected wi th 100 mL of Isovue 300. COMPARISON: None. FINDINGS: LUNG BASES: No significant abnormality is appreciated. LIVER/GB: No significant abnormality is appreciated. PANCREAS: No significant abnormality is seen. SPLEEN: No significant abnormality is seen. ADRENALS: No significant abnormality is seen. KIDNEYS: Symmetric cortical medullary uptake and excretion without hydronephrosis seen bilaterally. BOWEL: Normal-appearing appendix from the cecum posteriorly in the right lower quadrant. No suspiciou s small or large bowel dilatation. Some fluid in the right-sided colon is noted. UTERUS/ADNEXA: Anteverted uterus. No adnexal masses. Displaced Tubal ligation clip in the left bilate ral pelvis axial image 65. Second displaced tubal ligation clip in the upper peritoneal cavity left l ateral mid abdomen axial image 36 LYMPH NODES: No greater than 1cm abdominal or pelvic lymph nodes are appreciated. OSSEOUS STRUCTURES: Vacuum disc phenomenon lumbosacral junction. Facet arthropathy lower lumbar spine . OTHER: Mild to moderate calcified plaque of the aorta extends into branch vessels. Tiny fat-containin g umbilical hernia. IMPRESSION: Some fluid in the proximal colon could reflect product of diarrhea and/or mild uncomplica danny colitis otherwise unremarkable study.
--- NOTE | 2021-04-29 14:54 | ED ---
Abdominal Pain HPI - General Chief Complaint: Abdominal Pain Stated Complaint: abd pain, diarrhea Time Seen by Provider: 04/29/21 13:14 Source: patient, RN notes reviewed Mode of arrival: ambulatory Limitations: no limitations - History of Present Illness Initial Comments: 50-year-old female presenting emergency room complaining of abdominal pain. She notes that it started over the last few days. She denied any nausea or vomiting at this time. She is otherwise well-appearing 42-year-old female. She notes that she is postmenopausal. She notes that she still has her appendix and gallbladder. She notes that she can emergency room to get evaluated for possible appendicitis. She denied any other issues or complaints at this time. She was otherwise well-appearing. She denied any chest pain shortness of breath headache nausea vomiting diarrhea constipation fever fatigue chills. - Related Data Home Medications Medication Instructions Recorded Confirmed No Known Home Medications 04/29/21 04/29/21 Allergies Allergy/AdvReac Type Severity Reaction Status Date / Time No Known Allergies Allergy Verified 04/29/21 14:07 Review of Systems ROS Statement: Those systems with pertinent positive or pertinent negative responses have been documented in the HPI. ROS Other: All systems not noted in ROS Statement are negative. Past Medical History Past Medical History: Hyperlipidemia History of Any Multi-Drug Resistant Organisms: None Reported Past Surgical History: Tubal Ligation Additional Past Surgical History / Comment(s): eye surgery Past Anesthesia/Blood Transfusion Reactions: No Reported Reaction Additional Past Anesthesia/Blood Transfusion Reaction / Comment(s): Has trouble waking up from anesthesia Past Psychological History: Bipolar, Depression Smoking Status: Current every day smoker Past Alcohol Use History: Occasional Past Drug Use History: None Reported - Past Family History Father Additional Family Medical History / Comment(s): History of myocardial infarction and at age 69 of a massive myocardial infarction. Mother Additional Family Medical History / Comment(s): at age 52. History of myocardial infarction, abdominal aortic aneurysm, and stroke Sister(s) Additional Family Medical History / Comment(s): Date 6 vessel bypass at age 35, at age 42 suicide General Exam Limitations: no limitations General appearance: alert, in no apparent distress Head exam: Present: atraumatic, normocephalic, normal inspection Eye exam: Present: normal appearance, PERRL, EOMI. Absent: scleral icterus, conjunctival injection, periorbital swelling ENT exam: Present: normal exam, mucous membranes moist Neck exam: Present: normal inspection Respiratory exam: Present: normal lung sounds bilaterally. Absent: respiratory distress, wheezes, rales, rhonchi, stridor Cardiovascular Exam: Present: regular rate, normal rhythm, normal heart sounds. Absent: systolic murmur, diastolic murmur, rubs, gallop, clicks GI/Abdominal exam: Present: soft, tenderness (Left and right lower quadrants.), normal bowel sounds. Absent: distended, guarding, rebound, rigid Extremities exam: Present: normal inspection, full ROM, normal capillary refill. Absent: tenderness, pedal edema, joint swelling, calf tenderness Neurological exam: Present: alert, oriented X3 Psychiatric exam: Present: normal affect, normal mood Skin exam: Present: warm, dry, intact, normal color. Absent: rash Course Vital Signs 04/29/21 04/29/21 13:03 14:05 Temperature 98.5 F Pulse Rate 96 96 Respiratory 18 20 Rate Blood Pressure 125/83 123/76 O2 Sat by Pulse 98 98 Oximetry Medical Decision Making - Medical Decision Making 50-year-old female with abdominal pain mainly in the lower abdomen. Labs, 4 monos morphine, 4 mg Zofran, 1 L normal saline, CT of the abdomen and pelvis ordered. CT the abdomen pelvis shows diarrhea, normal appendix. Labs: CBC unremarkable, CMP unremarkable urinalysis unremarkable no UTI. Patient most likely has acute colitis causing abdominal discomfort. Case discussed with Dr. Hare, patient discharge home with follow-up primary care. - Lab Data Result diagrams: 04/29/21 13:33 04/29/21 13:33 Lab Results 04/29/21 04/29/21 04/29/21 Range/Units 13:33 13:33 13:33 WBC 7.9 (3.8-10.6) k/uL RBC 3.71 L (3.80-5.40) m/uL Hgb 14.1 (11.4-16.0) gm/dL Hct 37.2 (34.0-46.0) % MCV 100.2 H (80.0-100.0) fL MCH 38.1 H (25.0-35.0) pg MCHC 38.0 H (31.0-37.0) g/dL RDW 12.7 (11.5-15.5) % Plt Count 271 (150-450) k/uL MPV 7.4 Neutrophils % 63 % Lymphocytes % 30 % Monocytes % 3 % Eosinophils % 1 % Basophils % 0 % Neutrophils # 5.0 (1.3-7.7) k/uL Lymphocytes # 2.4 (1.0-4.8) k/uL Monocytes # 0.3 (0-1.0) k/uL Eosinophils # 0.1 (0-0.7) k/uL Basophils # 0.0 (0-0.2) k/uL Sodium 139 (137-145) mmol/L Potassium 4.4 (3.5-5.1) mmol/L Chloride 102 (98-107) mmol/L Carbon Dioxide 27 (22-30) mmol/L Anion Gap 10 mmol/L BUN 11 (7-17) mg/dL Creatinine 0.54 (0.52-1.04) mg/dL Est GFR (CKD-EPI)AfAm >90 (>60 ml/min/1.73 sqM) Est GFR (CKD-EPI)NonAf >90 (>60 ml/min/1.73 sqM) Glucose 109 H (74-99) mg/dL Calcium 9.5 (8.4-10.2) mg/dL Total Bilirubin 0.4 (0.2-1.3) mg/dL AST 31 (14-36) U/L ALT 14 (4-34) U/L Alkaline Phosphatase 95 (38-126) U/L Total Protein 7.8 (6.3-8.2) g/dL Albumin 4.4 (3.5-5.0) g/dL Amylase 53 (30-110) U/L Lipase 137 (23-300) U/L Urine Color Yellow Urine Appearance Clear (Clear) Urine pH 5.5 (5.0-8.0) Ur Specific [place] 1.015 (1.001-1.035) Urine Protein Negative (Negative) Urine Glucose (UA) Negative (Negative) Urine Ketones Negative (Negative) Urine Blood Negative (Negative) Urine Nitrite Negative (Negative) Urine Bilirubin Negative (Negative) Urine Urobilinogen <2.0 (<2.0) mg/dL Ur Leukocyte Esterase Small H (Negative) Urine RBC <1 (0-5) /hpf Urine WBC 2 (0-5) /hpf Ur Squamous Epith Cells 4 (0-4) /hpf Urine Mucus Rare H (None) /hpf - Radiology Data Radiology results: report reviewed, image reviewed CT abdomen and pelvis: Some fluid in the proximal colon could reflect product of diarrhea and/or mild uncomplicated colitis otherwise unremarkable study. Disposition Clinical Impression: Colitis, Diarrhea, Abdominal pain Disposition: HOME SELF-CARE Condition: Stable Instructions (If sedation given, give patient instructions): Abdominal Pain (ED) Additional Instructions: Please return to the Emergency Department if symptoms worsen or any other concerns. Follow-up with primary care 1-2 days. Increase oral fluids, eat a bland diet. Take Tylenol and Motrin as needed for pain. Can take [id number] Imodium as needed for diarrhea. Is patient prescribed a controlled substance at d/c from ED?: No Referrals: Donavon Jamison MD [Primary Care Provider] - 1-2 days Time of Disposition: 14:54
[2021-04-29 15:42] VITALS: BP 128/85; PULSE 89; RESP 17; TEMP 97.8
== END 2021-04-29 15:40 | disposition home or self-care (01) ==
LOC: EC 12:53
DX: K52.9 Noninfective gastroenteritis and colitis, unspecified (principal); E78.5 Hyperlipidemia, unspecified; F31.9 Bipolar disorder, unspecified; F17.200 Nicotine dependence, unspecified, uncomplicated; Z98.51 Tubal ligation status
CPT/HCPCS: 99284; 96374; 96375; 96361; 36415; 80053; 82150; 83690; 85025; 81001; 74177; J2270; J2405; Q9967

== ENCOUNTER → 2021-07-15 | Day surgery (SDC) | payer OTHER ==
[2021-07-13 12:15] VITALS: BMI 23.0
[~2021-07-15] MED LIST: LACTATED RINGERS 1,000 ML IV SCH; PROPOFOL 10 MG/ML 20 ML VIAL IV ONE
[2021-07-15 09:22] VITALS: TEMP 97.5
--- NOTE | 2021-07-15 10:39 | P.PCN ---
Date of Procedure: 07/15/21 Procedure(s) Performed: BRIEF HISTORY: Patient is a 50-year-old pleasant female scheduled for an elective colonoscopy as a part of evaluation of chronic diarrhea for the last several months duration. She has 5-6 loose watery bowel movements daily. She denies any blood or mucus in the stool. PROCEDURE PERFORMED: Colonoscopy with biopsy. PREOPERATIVE DIAGNOSIS: Chronic diarrhea. IV sedation per Anesthesia. PROCEDURE: After informed consent was obtained, the patient, was brought into the endoscopy unit. IV sedation was administered by Anesthesia under continuous monitoring. Digital rectal examination was normal. Initially the Olympus CF-160 flexible video colonoscope was then inserted in the rectum, gradually advanced into the cecum without any difficulty. Careful examination was performed as the scope was gradually being withdrawn. Ileocecal valve and the appendiceal orifice were visualized and appeared normal. Prep was excellent. Mucosa of the cecum, ascending colon, transverse colon, descending colon appeared normal. In the sigmoid colon there was a 2-3 mm polyp that was removed by cold biopsy. Random biopsies were done from ascending and descending colon to rule out microscopic/collagenous colitis. Rest of the sigmoid colon, and rectum appeared normal. Retroflexion was performed in the rectum and no lesions were seen. The patient tolerated the procedure well. IMPRESSION: 3-4 mm sigmoid colon polyp status post biopsy; Rest of the colon appeared normal . RECOMMENDATIONS: Findings of this examination were discussed with the patientas well as her family. She was advised to follow with the biopsy result. She will continue with Bentyl 20 mg 3 times daily and she'll be seen in office in 4 weeks.].
[2021-07-15 10:43] VITALS: RESP 16
[2021-07-15 10:58] VITALS: BP 115/77; PULSE 78
== END ==
LOC: ORWHC2ENDO 08:52
PROVIDERS: ATTEND Internal Medicine Gastroenterology
DX: Z12.11 Encounter for screening for malignant neoplasm of colon (principal); K63.5 Polyp of colon; F17.210 Nicotine dependence, cigarettes, uncomplicated
CPT/HCPCS: 81025; 88305; 45380; J2704

== ENCOUNTER 2022-03-13 13:07 | Emergency (ER) | payer OTHER ==
[2022-03-13 13:14] VITALS: TEMP 98.2
--- NOTE | 2022-03-13 14:14 | ED ---
General Adult HPI - General Chief complaint: Shortness of Breath Stated complaint: SOB Time Seen by Provider: 03/13/22 13:46 Source: patient Mode of arrival: ambulatory Limitations: no limitations - History of Present Illness Initial comments: Dictation was produced using Learn with [employer] dictation software. please excuse any grammatical, word or spelling errors. Chief Complaint: 51-year-old female presents emergency department for left scapu lar back pain History of Present Illness: 51-year-old female she is presents to the ER for one day left scapular back pain. Patient has a history of blood clots. She states that it's located at the left scapular back worse with deep inspiration. She complains of mild shortness of breath. Patient has any history of DVT. She denies any lower extremity symptoms. Patient has a fever constitutional symptoms. No cough. Patient was an recent road trip to [place] recently. They drove. The ROS documented in this emergency department record has been reviewed and confirmed by me. Those systems with pertinent positive or negative responses have been documented in the HPI. All other systems are other negative and/or noncontributory. PHYSICAL EXAM: General Impression: Alert and oriented x3, not in acute distress HEENT: Normocephalic atraumatic, extra-ocular movements intact, pupils equal and reactive to light bilaterally, mucous membranes moist. Cardiovascular: Heart regular rate and rhythm Chest: Able to complete full sentences, no retractions, no tachypnea, clear to auscultation bilaterally Abdomen: abdomen soft, non-tender, non-distended, no organomegaly Musculoskeletal: Pulses present and equal in all extremities, no peripheral edema Motor: no focal deficits noted Neurological: CN II-XII grossly intact, no focal motor or sensory deficits noted Skin: Intact with no visualized rashes Psych: Normal affect and mood ED course: 51-year-old female presents emergency department for pleuritic back pain. Vital signs upon arrival are within acceptable limits. Laboratory evaluation obtained. Metabolic panel is unremarkable. Troponin is negative. D-dimer is negative. Coag panel is negative. Chest x-ray shows no acute processes. Medical presentation consistent with back strain. Patient will be discharged. She is agreeable for lidocaine patch. Patient told to take [id number] Motrin for his symptoms. - Related Data Home Medications Medication Instructions Recorded Confirmed No Known Home Medications 04/29/21 07/13/21 Allergies Allergy/AdvReac Type Severity Reaction Status Date / Time No Known Allergies Allergy Verified 03/13/22 13:14 Review of Systems ROS Statement: Those systems with pertinent positive or pertinent negative responses have been documented in the HPI. ROS Other: All systems not noted in ROS Statement are negative. Past Medical History Past Medical History: Hyperlipidemia Additional Past Medical History / Comment(s): CHRONIC DIARRHEA History of Any Multi-Drug Resistant Organisms: None Reported Past Surgical History: Tubal Ligation Additional Past Surgical History / Comment(s): eye surgery Past Anesthesia/Blood Transfusion Reactions: No Reported Reaction Additional Past Anesthesia/Blood Transfusion Reaction / Comment(s): Has trouble waking up from anesthesia Past Psychological History: Bipolar, Depression Smoking Status: Current every day smoker, Vaper Past Alcohol Use History: Occasional Past Drug Use History: None Reported - Past Family History Father Additional Family Medical History / Comment(s): History of myocardial infarction and at age 69 of a massive myocardial infarction. Mother Additional Family Medical History / Comment(s): at age 52. History of myocardial infarction, abdominal aortic aneurysm, and stroke Sister(s) Additional Family Medical History / Comment(s): Date 6 vessel bypass at age 35, at age 42 suicide General Exam Limitations: no limitations Course Vital Signs 03/13/22 03/13/22 13:12 14:33 Temperature 98.2 F Pulse Rate 93 Respiratory 20 15 Rate Blood Pressure 138/89 O2 Sat by Pulse 99 Oximetry Medical Decision Making - Lab Data Result diagrams: 03/13/22 14:25 Lab Results 03/13/22 03/13/22 03/13/22 Range/Units 14:25 14:25 14:25 PT 10.1 (9.0-12.0) sec INR 0.9 (<1.2) APTT 23.0 (22.0-30.0) sec D-Dimer 0.48 (<0.60) mg/L FEU Sodium 140 (137-145) mmol/L Potassium 4.4 (3.5-5.1) mmol/L Chloride 104 (98-107) mmol/L Carbon Dioxide 22 (22-30) mmol/L Anion Gap 14 mmol/L BUN 13 (7-17) mg/dL Creatinine 0.63 (0.52-1.04) mg/dL Est GFR (CKD-EPI)AfAm >90 (>60 ml/min/1.73 sqM) Est GFR (CKD-EPI)NonAf >90 (>60 ml/min/1.73 sqM) Glucose 91 (74-99) mg/dL Calcium 9.6 (8.4-10.2) mg/dL Total Bilirubin 0.5 (0.2-1.3) mg/dL AST 35 (14-36) U/L ALT 17 (4-34) U/L Alkaline Phosphatase 88 (38-126) U/L Troponin I <0.012 (0.000-0.034) ng/mL Total Protein 7.9 (6.3-8.2) g/dL Albumin 4.7 (3.5-5.0) g/dL Disposition Clinical Impression: Back strain Disposition: HOME SELF-CARE Condition: Good Instructions (If sedation given, give patient instructions): Thoracic Back Strain (ED) Is patient prescribed a controlled substance at d/c from ED?: No Referrals: Romaine Jamison MD [Primary Care Provider] - 1-2 days Time of Disposition: 15:27
[2022-03-13 14:47] LABS: ALT 17 U/L (4-34); AST 35 U/L (14-36); African American GFR (CKD) >90 (>60 ml/min/1.73 sqM); Albumin 4.7 g/dL (3.5-5.0); Alkaline Phosphatase 88 U/L (38-126); Anion Gap 14 mmol/L; Blood Urea Nitrogen 13 mg/dL (7-17); Calcium 9.6 mg/dL (8.4-10.2); Carbon Dioxide 22 mmol/L (22-30); Chloride 104 mmol/L (98-107); Glucose 91 mg/dL (74-99); Non-African American GFR(CKD) >90 (>60 ml/min/1.73 sqM); Potassium 4.4 mmol/L (3.5-5.1); Sodium 140 mmol/L (137-145); Total Bilirubin 0.5 mg/dL (0.2-1.3); Total Protein 7.9 g/dL (6.3-8.2)
[2022-03-13 15:06] LABS: INR 0.9 (<1.2); Prothrombin Time 10.1 sec (9.0-12.0)
[2022-03-13] MEDS ORDERED: LIDOCAINE 5% PATCH TOPICAL STA (15:26)
--- NOTE | 2022-03-13 15:27 | XR ---
EXAMINATION TYPE: XR chest 2V DATE OF EXAM: 03/13/2022 COMPARISON: 06/08/2018 HISTORY: 51-year-old female left scapular pleuritic pain TECHNIQUE: PA and lateral views FINDINGS: Heart normal size. Aorta and pulmonary vasculature within normal limits. Mild interstitial prominence and mild hyperinflation. No consolidation or pleural effusion. IMPRESSION: Chronic changes, possible underlying COPD. Clinically correlate.
[2022-03-13 15:49] VITALS: BP 132/87; PULSE 92; RESP 17
== END 2022-03-13 15:44 | disposition home or self-care (01) ==
LOC: EC 13:07
DX: S39.012A Strain of muscle, fascia and tendon of lower back, initial encounter (principal); R06.02 Shortness of breath; F17.290 Nicotine dependence, other tobacco product, uncomplicated
CPT/HCPCS: 36415; 71046; 80053; 84484; 85379; 85610; 85730; 93005; 99285

== ENCOUNTER 2022-10-14 01:20 | Emergency (ER) | payer OTHER ==
[2022-10-14 01:36] VITALS: BP 130/85; PULSE 86; RESP 18; TEMP 98.1
[2022-10-14] MEDS ORDERED: dexAMETHasone 4 MG TAB PO STA (01:55)
--- NOTE | 2022-10-14 01:59 | ED ---
General Adult HPI - General Chief complaint: Skin/Abscess/Foreign Body Stated complaint: hivwarner,rinku Time Seen by Provider: 10/14/22 01:39 Source: patient Mode of arrival: ambulatory Limitations: no limitations - History of Present Illness Initial comments: Dictation was produced using [employer] dictation software. please excuse any grammatical, word or spelling errors. Chief Complaint: 51-year-old female presents with neck rash History of Present Illness: A 51-year-old female presents emergency department with neck rash. Patient states the rash was initially noticed by her daughter. Patient has any itching. No pain. Patient denies any obvious exposure. Denies any rash and anywhere else on her body. No shortness of breath. No symptoms of throat closure. No changes in her voice. No abdominal pain. No nausea vomiting. No lightheadedness. The ROS documented in this emergency department record has been reviewed and co nfirmed by me. Those systems with pertinent positive or negative responses have been documented in the HPI. All other systems are other negative and/or noncontributory. PHYSICAL EXAM: General Impression: Alert and oriented x3, not in acute distress HEENT: Normocephalic atraumatic, extra-ocular movements intact, pupils equal and reactive to light bilaterally, mucous membranes moist. Cardiovascular: Heart regular rate and rhythm Chest: Able to complete full sentences, no retractions, no tachypnea Abdomen: abdomen soft, non-tender, non-distended, no organomegaly Musculoskeletal: Pulses present and equal in all extremities, no peripheral edema Motor: no focal deficits noted Neurological: CN II-XII grossly intact, no focal motor or sensory deficits noted Skin: Raised erythematous nonpruritic rash localized to the left anterior neck. It is not macular. No scaling. Nonindurated Psych: Normal affect and mood ED course: 51-year-old female presents emergency department for for acute rash. Rash appears to be consistent with contact dermatitis. The symptoms of anaphylaxis or severe life-threatening ALLERGIC reaction. Skin exam signs area of rash on the neck is otherwise normal. Patient is a high-risk features. Given a dose of Decadron. Advise follow-up with primary care doctor. Nursing notes and chart review was performed Was pt. sent in by a medical professional or institution (, PA, CITY CONTROLLER, urgent care, hospital, or intermediate...) When possible be specific @ -No Did you speak to anyone other than the patient for history (EMS, parent, family, police, friend...)? What history was obtained from this source @ -No Did you review nursing and triage notes (agree or disagree)? Why? @ -I reviewed and agree with nursing and triage notes Were old charts reviewed (outside hosp., previous admission, EMS record, old EKG, old radiological studies, urgent care reports/EKG's, intermediate records)? Report findings @ -No old charts were reviewed Differential Diagnosis (chest pain, altered mental status, abdominal pain women, abdominal pain men, vaginal bleeding, musculoskeletal, weakness, fever, dyspnea, syncope, headache, dizziness, GI bleed, back pain, seizure, CVA, palpatations, mental health)? @ -not applicable EKG interpreted by me (3pts min.). @ -None done X-rays interpreted by me (1pt min.). @ -None done CT interpreted by me (1pt min.). @ -None done U/S interpreted by me (1pt. min.). @ -None done What testing was considered but not performed or refused? (CT, X-rays, U/S, labs)? Why? @ -None What meds were considered but not given or refused? Why? @ -None Did you discuss the management of the patient with other professionals (professionals i.e. , PA, CITY CONTROLLER, lab, RT, psych nurse, social studies teacher, dev manager, teacher, food safety officer, family independence case manager)? Give summary @ -No Was smoking cessation discussed for >3mins.? @ -No Was critical care preformed (if so, how long)? @ -No Were there social determinants of health that impacted care today? How? (Homelessness, low income, unemployed, alcoholism, drug addiction, transportation, low edu. Level, literacy, decrease access to med. care, [facility], rehab)? @ -No Was there de-escalation of care discussed even if they declined (Discuss DNR or withdrawal of care, Hospice)? DNR status @ -No What co-morbidities impacted this encounter? (DM, HTN, Smoking, COPD, CAD, Cancer, CVA, ARF, Chemo, Hep., AIDS, mental health diagnosis, sleep apnea, morbid obesity)? @ -None Was patient admitted / discharged? Hospital course, mention meds given and route, prescriptions, significant lab abnormalities, going to OR and other pertinent info. @ -51 Year-old female presents with acute rash. Rash suggest contact dermatitis as it is only localized to the skin exposed area limited to the neck. No symptoms of anaphylaxis. Patient given Decadron discharge. Undiagnosed new problem with uncertain prognosis? @ -No Drug Therapy requiring intensive monitoring for toxicity (Heparin, Nitro, Insulin, Cardizem)? @ -No Were any procedures done? @ -No Diagnosis/symptom? Acute, or Chronic, or Acute on Chronic? Uncomplicated (without systemic symptoms) or Complicated (systemic symptoms)? @ -1. Acute uncomplicated rash Side effects of treatment? @ -No Exacerbation, Progression, or Severe Exacerbation? @ -No Poses a threat to life or bodily function? How? (Chest pain, [place], [place], pneumonia, PE, COPD, DKA, ARF, appy, cholecystitis, CVA, Diverticulitis, Homicidal, Suicidal, threat to staff... and all critical care pts) @ -No - Related Data Home Medications Medication Instructions Recorded Confirmed No Known Home Medications 04/29/21 07/13/21 Allergies Allergy/AdvReac Type Severity Reaction Status Date / Time No Known Allergies Allergy Verified 03/13/22 13:14 Review of Systems ROS Statement: Those systems with pertinent positive or pertinent negative responses have been documented in the HPI. ROS Other: All systems not noted in ROS Statement are negative. Past Medical History Past Medical History: Hyperlipidemia Additional Past Medical History / Comment(s): CHRONIC DIARRHEA, parkinsons History of Any Multi-Drug Resistant Organisms: None Reported Past Surgical History: Tubal Ligation Additional Past Surgical History / Comment(s): eye surgery Past Anesthesia/Blood Transfusion Reactions: No Reported Reaction Additional Past Anesthesia/Blood Transfusion Reaction / Comment(s): Has trouble waking up from anesthesia Past Psychological History: Bipolar, Depression Smoking Status: Current every day smoker, Vaper Past Alcohol Use History: Occasional Past Drug Use History: None Reported - Past Family History Father Additional Family Medical History / Comment(s): History of myocardial infarction and at age 69 of a massive myocardial infarction. Mother Additional Family Medical History / Comment(s): at age 52. History of myocardial infarction, abdominal aortic aneurysm, and stroke Sister(s) Additional Family Medical History / Comment(s): Date 6 vessel bypass at age 35, at age 42 suicide General Exam Limitations: no limitations Course Vital Signs 10/14/22 01:33 Temperature 98.1 F Pulse Rate 86 Respiratory 18 Rate Blood Pressure 130/85 O2 Sat by Pulse 98 Oximetry Disposition Clinical Impression: Rash Disposition: HOME SELF-CARE Condition: Good Instructions (If sedation given, give patient instructions): Acute Rash (ED) Is patient prescribed a controlled substance at d/c from ED?: No Referrals: Romaine Jamison MD [Primary Care Provider] - 1-2 days Time of Disposition: 01:59
== END 2022-10-14 02:07 | disposition home or self-care (01) ==
LOC: EC 01:20
DX: R21 Rash and other nonspecific skin eruption (principal); F31.9 Bipolar disorder, unspecified; F17.290 Nicotine dependence, other tobacco product, uncomplicated
CPT/HCPCS: 99282; J8540

== ENCOUNTER → 2023-11-14 | Outpatient (CLI) | payer BC ==
--- NOTE | 2023-11-17 14:53 | NM ---
EXAMINATION TYPE: NM DatScan Brain SPECT DATE OF EXAM: 11/16/2023 COMPARISON: NONE CLINICAL INDICATION: Female, 52 years old with history of G25.1; TECHNIQUE: 10 drops of Lugol's solution was administered 1 hour prior to injection as a thyroid bloc chang agent. After the administration of 4.74 mCi I-123 Ioflupane DaTscan. Images obtained 3 hours p ost injection. SPECT images of the brain were acquired with axial and coronal reconstructions. FINDINGS: There is marked diffuse increased background activity. Striatal activity is slightly blunted on the l eft. IMPRESSION: Given the marked diffuse increased background activity and slight unilateral blunting, findings highl y suspicious for Parkinson's disease or a parkinsonian syndrome.
== END | disposition home or self-care (01) ==
LOC: RADNMMAIN 09:17
PROVIDERS: ATTEND Psychiatry & Neurology Neurology
DX: R25.1 Tremor, unspecified (principal)
CPT/HCPCS: 78803; A9584

== ENCOUNTER 2023-11-15 16:03 | Emergency (ER) | payer BC ==
[2023-11-15 16:37] VITALS: TEMP 98.2
--- NOTE | 2023-11-15 16:43 | ED ---
General Adult HPI - General Chief complaint: Skin/Abscess/Foreign Body Stated complaint: Rash on neck Time Seen by Provider: 11/15/23 16:10 Source: patient, RN notes reviewed Mode of arrival: ambulatory Limitations: no limitations - History of Present Illness Initial comments: 52-year-old female presents to the emergency department for evaluation of rash on the left side of her neck. She states that yesterday she underwent a DaTscan. After she went home, she states that she took a nap. When she woke up, she reports that her family noticed a rash on her neck. She states that it was somewhat itchy yesterday but is not significantly today. She admits to discomfort with palpation of the area. She denies any difficulty breathing or swallowing. Denies any other symptoms. - Related Data Previous Rx's Medication Instructions Recorded predniSONE [Deltasone] 20 mg PO DAILY #5 tab 11/15/23 Allergies Allergy/AdvReac Type Severity Reaction Status Date / Time No Known Allergies Allergy Verified 03/13/22 13:14 Review of Systems ROS Statement: Those systems with pertinent positive or pertinent negative responses have been documented in the HPI. ROS Other: All systems not noted in ROS Statement are negative. Past Medical History Past Medical History: Hyperlipidemia Additional Past Medical History / Comment(s): CHRONIC DIARRHEA, parkinsons History of Any Multi-Drug Resistant Organisms: None Reported Past Surgical History: Tubal Ligation Additional Past Surgical History / Comment(s): eye surgery Past Anesthesia/Blood Transfusion Reactions: No Reported Reaction Additional Past Anesthesia/Blood Transfusion Reaction / Comment(s): Has trouble waking up from anesthesia Past Psychological History: Bipolar, Depression Smoking Status: Current every day smoker, Vaper Past Alcohol Use History: Occasional Past Drug Use History: None Reported - Past Family History Father Additional Family Medical History / Comment(s): History of myocardial infarction and at age 69 of a massive myocardial infarction. Mother Additional Family Medical History / Comment(s): at age 52. History of myocardial infarction, abdominal aortic aneurysm, and stroke Sister(s) Additional Family Medical History / Comment(s): Date 6 vessel bypass at age 35, at age 42 suicide General Exam Limitations: no limitations General appearance: alert, in no apparent distress Head exam: Present: atraumatic, normocephalic, normal inspection Eye exam: Present: normal appearance, PERRL, EOMI. Absent: scleral icterus, conjunctival injection, periorbital swelling ENT exam: Present: normal exam, mucous membranes moist Neck exam: Present: tenderness (left anterolateral neck with overlying rash), full ROM. Absent: meningismus, lymphadenopathy, thyromegaly Respiratory exam: Present: normal lung sounds bilaterally. Absent: respiratory distress, wheezes, rales, rhonchi, stridor Cardiovascular Exam: Present: regular rate, normal rhythm, normal heart sounds. Absent: systolic murmur, diastolic murmur, rubs, gallop, clicks Extremities exam: Present: normal inspection, full ROM, normal capillary refill. Absent: tenderness, pedal edema, joint swelling, calf tenderness Back exam: Present: normal inspection Neurological exam: Present: alert, oriented X3 Psychiatric exam: Present: normal affect, normal mood Skin exam: Present: warm, dry, rash (erythematous raised rash to left anterolateral neck ) Course Vital Signs 11/15/23 11/15/23 16:04 17:12 Temperature 98.2 F Pulse Rate 99 82 Respiratory 18 18 Rate Blood Pressure 135/91 O2 Sat by Pulse 98 96 Oximetry Medical Decision Making - Medical Decision Making Was pt. sent in by a medical professional or institution (, PA, HAND I BLOCKER, urgent care, hospital, or fpc...) When possible be specific @ -No Did you speak to anyone other than the patient for history (EMS, parent, family, police, friend...)? What history was obtained from this source @ -No Did you review nursing and triage notes (agree or disagree)? Why? @ -I reviewed and agree with nursing and triage notes Were old charts reviewed (outside hosp., previous admission, EMS record, old EKG, old radiological studies, urgent care reports/EKG's, fpc records)? Report findings @ -No old charts were reviewed Differential Diagnosis (chest pain, altered mental status, abdominal pain women, abdominal pain men, vaginal bleeding, weakness, fever, dyspnea, syncope, headache, dizziness, GI bleed, back pain, seizure, CVA, palpatations, mental health, musculoskeletal)? @ -Allergic reaction, infection, shingles, this list is not all inclusive EKG interpreted by me (3pts min.). @ -None X-rays interpreted by me (1pt min.). @ -None done CT interpreted by me (1pt min.). @ -None done U/S interpreted by me (1pt. min.). @ -None done What testing was considered but not performed or refused? (CT, X-rays, U/S, labs)? Why? @ -None What meds were considered but not given or refused? Why? @ -None Did you discuss the management of the patient with other professionals (professionals i.e. DrThomas, PA, HAND I BLOCKER, lab, RT, psych nurse, social media campaign manager, crystal syrup maker, teacher, inshore undersea warfare officer, heel caser)? Give summary @ -No Was smoking cessation discussed for >3mins.? @ -No Was critical care preformed (if so, how long)? @ -No Were there social determinants of health that impacted care today? How? (Homelessness, low income, unemployed, alcoholism, drug addiction, transportation, low edu. Level, literacy, decrease access to med. care, [facility], rehab)? @ -No Was there de-escalation of care discussed even if they declined (Discuss DNR or withdrawal of care, Hospice)? DNR status @ -No What co-morbidities impacted this encounter? (DM, HTN, Smoking, COPD, CAD, Cancer, CVA, ARF, Chemo, Hep., AIDS, mental health diagnosis, sleep apnea, morbid obesity)? @ -None Was patient admitted / discharged? Hospital course, mention meds given and route, prescriptions, significant lab abnormalities, going to OR and other pertinent info. @ -Discharge. Patient presented to the emergency department for evaluation of rash on the left side of her neck. Laboratory studies obtained including CBC and BMP which are unremarkable. Discussed possible reaction to medications patient received yesterday during scan. Denies fever, difficulty breathing, swallowing. Tolerating PO intake in the room. Patient provided dose of IV Solu- Medrol, Benadryl, Pepcid. Prescription sent to patient's pharmacy for prednisone x 5 days. Patient will be discharged home. Patient understanding and agreeable with plan. Case discussed with Dr. Lagunas who also evaluated the patient and agrees with assessment and plan. Undiagnosed new problem with uncertain prognosis? @ -No Drug Therapy requiring intensive monitoring for toxicity (Heparin, Nitro, Insulin, Cardizem)? @ -No Were any procedures done? @ -No Diagnosis/symptom? @ -Allergic reaction Acute, or Chronic, or Acute on Chronic? @ -Acute Uncomplicated (without systemic symptoms) or Complicated (systemic symptoms)? @ -Uncomplicated Side effects of treatment? @ -No Exacerbation, Progression, or Severe Exacerbation? @ -No Poses a threat to life or bodily function? How? (Chest pain, [place], [place], pneumonia, PE, COPD, DKA, ARF, appy, cholecystitis, CVA, Diverticulitis, Homicidal, Suicidal, threat to staff... and all critical care pts) @ -No - Lab Data Result diagrams: 11/15/23 17:22 11/15/23 17: Lab Results 11/15/23 11/15/23 Range/Units 17:22 17:22 WBC 6.2 (3.8-10.6) k/uL RBC 4.22 (3.80-5.40) m/uL Hgb 13.3 (11.4-16.0) gm/dL Hct 41.4 (34.0-46.0) % MCV 98.2 (80.0-100.0) fL MCH 31.4 (25.0-35.0) pg MCHC 32.0 (31.0-37.0) g/dL RDW 11.8 (11.5-15.5) % Plt Count 257 (150-450) k/uL MPV 7.6 Neutrophils % 51 % Lymphocytes % 40 % Monocytes % 4 % Eosinophils % 1 % Basophils % 1 % Neutrophils # 3.1 (1.3-7.7) k/uL Lymphocytes # 2.5 (1.0-4.8) k/uL Monocytes # 0.3 (0-1.0) k/uL Eosinophils # 0.1 (0-0.7) k/uL Basophils # 0.0 (0-0.2) k/uL Sodium 137 (137-145) mmol/L Potassium 4.8 (3.5-5.1) mmol/L Chloride 104 (98-107) mmol/L Carbon Dioxide 24 (22-30) mmol/L Anion Gap 9 mmol/L BUN 15 (7-17) mg/dL Creatinine 0.55 (0.52-1.04) mg/dL Est GFR (CKD-EPI)AfAm >90 (>60 ml/min/1.73 sqM) Est GFR (CKD-EPI)NonAf >90 (>60 ml/min/1.73 sqM) Glucose 98 (74-99) mg/dL Calcium 9.5 (8.4-10.2) mg/dL Disposition Clinical Impression: Allergic reaction Disposition: HOME SELF-CARE Condition: Stable Instructions (If sedation given, give patient instructions): General Allergic Reaction (ED) Additional Instructions: Please follow up with your primary care provider. Return to the emergency department for new or worsening symptoms. Prescriptions: predniSONE [Deltasone] 20 mg PO DAILY #5 tab Is patient prescribed a controlled substance at d/c from ED?: No Referrals: Andrea Ramon MD [Primary Care Provider] - 1-2 days Time of Disposition: 18:06
[2023-11-15 17:37] LABS: Basophils % (A) 1 %; Eosinophils # (A) 0.1 k/uL (0-0.7); Eosinophils % (A) 1 %; HCT 41.4 % (34.0-46.0); HGB 13.3 gm/dL (11.4-16.0); Lymphocytes # (A) 2.5 k/uL (1.0-4.8); Lymphocytes % (A) 40 %; MCH 31.4 pg (25.0-35.0); MCV 98.2 fL (80.0-100.0); Mean Platelet Volume 7.6; Monocytes # (A) 0.3 k/uL (0-1.0); Monocytes % (A) 4 %; Neutrophils # (A) 3.1 k/uL (1.3-7.7); Neutrophils % (A) 51 %; Platelet Count 257 k/uL (150-450); RBC 4.22 m/uL (3.80-5.40); RDW 11.8 % (11.5-15.5); WBC 6.2 k/uL (3.8-10.6)
[2023-11-15] MEDS: FAMOTIDINE 20 MG/2 ML VIAL IV STA (17:38)
[2023-11-15] MEDS: methylPREDNISolone SOD SUCCI 125 MG/2 ML VIAL IV STA (17:39)
[2023-11-15] MEDS: diphenhydrAMINE 50 MG/ML 1 ML VIAL IVP STA (17:39)
[2023-11-15 17:56] LABS: African American GFR (CKD) >90 (>60 ml/min/1.73 sqM); Anion Gap 9 mmol/L; Blood Urea Nitrogen 15 mg/dL (7-17); Calcium 9.5 mg/dL (8.4-10.2); Carbon Dioxide 24 mmol/L (22-30); Chloride 104 mmol/L (98-107); Glucose 98 mg/dL (74-99); Non-African American GFR(CKD) >90 (>60 ml/min/1.73 sqM); Potassium 4.8 mmol/L (3.5-5.1); Sodium 137 mmol/L (137-145)
[2023-11-15 19:13] VITALS: BP 131/83; PULSE 85; RESP 16
== END 2023-11-15 19:13 | disposition home or self-care (01) ==
LOC: EC 16:03
DX: T78.1XXA Other adverse food reactions, not elsewhere classified, initial encounter (principal); R21 Rash and other nonspecific skin eruption; F17.290 Nicotine dependence, other tobacco product, uncomplicated
CPT/HCPCS: 36415; 80048; 85025; 99283; 96374; 96375 ×2; J1200; J3490; J2919